=== PATIENT | male | born 1985 | race Caucasian/White ===

== ENCOUNTER 2019-03-06 03:39 | Emergency (ER) | payer OTHER ==
[~2019-03-06] VITALS: Ht 172.7 cm; Wt 86.2 kg
[2019-03-06 03:45] VITALS: BP_SYST 144
--- NOTE | 2019-03-06 03:45 | NUR ---
Pt c/o pain to right ankle s/p slip and fall in a puddle of water at 0300 this AM. Deformity and swelling noted to right medial ankle. Able to wiggle toes without difficulty, cap refil < 3 sec to nail beds. Pt states that he drank Oli Vodka Soda x 4 drinks around 0100.
--- NOTE | 2019-03-06 03:45 | NUR ---
Patient to ER bed 2 to gown for evaluation. Side rails up. Report given to TONY Bui.
--- NOTE | 2019-03-06 03:48 | NUR ---
ER Dr. Bowden at bedside examining patient.
--- NOTE | 2019-03-06 04:06 | NUR ---
Xray at bedside. Pt tolerated well.
--- NOTE | 2019-03-06 05:40 | NUR ---
Pt moaning in pain. Dr. Story notified. Pt to be medicated.
[2019-03-06] MEDS ORDERED: HYDROcodone/ACETAMIN 5-325 MG TAB (NORCO/ VICODIN) PO ONE (05:45)
[2019-03-06] MEDS ORDERED: KETOROLAC TROMETHAMINE 60 MG/2 ML VIAL IM ONE (05:45)
--- NOTE | 2019-03-06 06:05 | NUR ---
Dr. Bowden at bedside to hold ankle in place as high/short splint and stirrup splints are placed. Toes visable at end of splint, pink color, cap refil < 3 sec to nail beds. Pt verbalizes improvement in pain s/p splint placement.
--- NOTE | 2019-03-06 06:45 | NUR ---
X-ray at bedside.
[2019-03-06 07:46] VITALS: BP_SYST 118
--- NOTE | 2019-03-06 07:48 | NUR ---
Patient given written and verbal discharge instructions and verbalizes understanding. ER MD Bowden discussed with patient the results and treatment provided. Patient in stable condition. ID arm band removed. Rx of norco and motrin given. Patient educated on pain management and to follow up with PMD. Pain Scale 0. Opportunity for questions provided and answered. Medication side effect fact sheet provided.
== END 2019-03-06 07:46 | disposition home or self-care (01) ==
LOC: SED 03:39
DX: S82.841A Displaced bimalleolar fracture of right lower leg, initial encounter for closed fracture (principal); W01.0XXA Fall on same level from slipping, tripping and stumbling without subsequent striking against object, initial encounter; Y93.89 Activity, other specified; Y92.89 Other specified places as the place of occurrence of the external cause; Y99.8 Other external cause status
CPT/HCPCS: 29515; 73590; 73600; 73610; 96372; 99283; J1885